=== PATIENT | female | born 1945 | race Caucasian/White ===

== ENCOUNTER 2017-03-06 15:00 | Emergency (ER) | payer OTHER ==
[~2017-03-06] VITALS: Ht 149.9 cm; Wt 75.6 kg
[~2017-03-06 15:00] MED LIST: ADVAIR 250/501 DISK PO; ADVIL,NUPRIN,M200 MG PO; ASPIR-TRIN325 M1 PO; CLINDAMYCIN HC150 MG PO; Cipro PO; FLEXERIL10 MG PO; GLUCOPHAGE1000 MG PO; GLUCOTROL XL10 MG PO; GLUCOTROL5 MG PO; Glucotrol PO; Hydrodiuril,Oretic,E PO; LANTUS 3 M100 UNITS1; LANTUS 3 M100 UNITS1 SC; LIDODERM 5% P1 PATCH TD; LISINOPRIL-HCTZ 20-2 PO; LISINOPRIL10 MG; LISINOPRIL10 MG PO; NITROSTAT0.4 MG SL; NORCO 5/3251 TABLET PO; NORVASC5 MG PO; NOVOLOG PE100 UNITS/ SC; PRAVACHOL40 MG PO; PRAVASTATIN SOD40 MG PO; Pravachol PO; SYMBICORT60 INHALAT IH; ULTRAM50 MG PO; ZOLOFT25 MG PO; Zestril,Prinivil PO; [UNRECOGNIZED DRUG - OTHER] LEFT EYE
[2017-03-06 15:50] LABS: HEMATOCRIT 40.2 % (36.0-46.0); MCH 29.4 PG (29.0-34.0); MCHC 32.3 G/DL (30.0-36.0); MEAN PLAT.VOLUME 11.1 uM^3 (9.5-12.4); PLATELET COUNT 302 K/uL (156-360); RBC DIS.WIDTH-CV 13.7 % (11.8-14.6); RBC DIS.WIDTH-SD 46.1 % (39-53); RED BLOOD COUNT 4.42 M/uL (3.80-5.20); WHITE BLOOD COUNT 9.7 K/uL (4.1-10.2)
[2017-03-06 16:05] LABS: CHLORIDE 104 mEq/L (99-109); POTASSIUM 4.1 mEq/L (3.7-5.4); SODIUM 138 mEq/L (136-147)
[2017-03-06 16:07] LABS: GLUCOSE 167 mg/dL (70-99)
[2017-03-06 16:09] LABS: ANION GAP 11 MEQ/L (2-14)
[2017-03-06 16:11] LABS: GFR ESTIMATE (CALCULATED) 58 mL/min/
[2017-03-06 16:12] LABS: UREA NITROGEN (BUN) 12 mg/dL (9-23)
[2017-03-06 17:11] LABS: ADD MIUA? YES; BILIRUBIN NEGATIVE; BLOOD NEGATIVE; COLOR YELLOW ((YELLOW)); GLUCOSE (STRIP) NEGATIVE; KETONES NEGATIVE; LEUKOCYTES SMALL; NITRITE NEGATIVE; PROTEIN (STRIP) 30; SPECIFIC GRAVITY 1.017 (1.000-1.030); UROBILINOGEN 0.2 MG/DL (0.2-1.0)
[2017-03-06 17:22] LABS: BACTERIA NONE SEEN /HPF; EPITHELIAL CELLS 1+ /HPF; MUCUS TRACE /LPF; RED BLOOD CELLS 0-5 /HPF (0-5); UCUL ADDED? YES
[2017-03-06] MEDS ORDERED: ZOFRAN4 MG PO (17:26)
[2017-03-06 17:31] VITALS: BP 108/69
== END 2017-03-06 17:43 | disposition home or self-care (01) ==
LOC: EME 15:00
DX: R11.2 Nausea with vomiting, unspecified (principal); R19.7 Diarrhea, unspecified; L72.3 Sebaceous cyst; I10 Essential (primary) hypertension; E11.65 Type 2 diabetes mellitus with hyperglycemia; Z79.4 Long term (current) use of insulin; E78.5 Hyperlipidemia, unspecified; K21.9 Gastro-esophageal reflux disease without esophagitis; J44.9 Chronic obstructive pulmonary disease, unspecified; F32.9 Major depressive disorder, single episode, unspecified; F41.9 Anxiety disorder, unspecified; Z87.891 Personal history of nicotine dependence; Z88.0 Allergy status to penicillin
CPT/HCPCS: 80048; 81003; 85027; 87086 GA; 99281; 99284; J1885; J2405; J7030